=== PATIENT | male | born 1945 | race Hispanic/Latino ===

== ENCOUNTER → 2018-01-15 | Outpatient (CLI) | payer OTHER | END | disposition home or self-care (01) | LOC: SHCH 15:19 | PROVIDERS: ATTEND Internal Medicine Cardiovascular Disease | DX: I10 Essential (primary) hypertension (principal) | CPT/HCPCS: 93306 ==

== ENCOUNTER → 2018-01-22 | Outpatient (CLI) | payer OTHER ==
[~2018-01-22] VITALS: Ht 172.7 cm; Wt 108.9 kg
[~2018-01-22] MED LIST: REGADENOSON 0.4 MG/5 ML PF SYG IVP SCH
== END | disposition home or self-care (01) ==
LOC: SHCH 08:21
PROVIDERS: ATTEND Internal Medicine Cardiovascular Disease
DX: I20.9 Angina pectoris, unspecified (principal)
CPT/HCPCS: 78452; 93017; 96374; A9500 ×2; J2785

== ENCOUNTER → 2019-08-08 | Outpatient (CLI) | payer OTHER | END | disposition home or self-care (01) | LOC: SHCH 15:58 | PROVIDERS: ATTEND Internal Medicine Cardiovascular Disease | DX: I10 Essential (primary) hypertension (principal) | CPT/HCPCS: 93306 ==

== ENCOUNTER 2019-10-02 13:57 | Emergency (ER) | payer OTHER ==
[2019-10-02 14:52] LABS: BASOPHILS % (AUTO) 0.6 % (0.0-5.0); EOSINOPHILS % (AUTO) 0.5 % (0.0-8.0); LYMPHOCYTES % (AUTO) 10.1 % (21.0-51.0); MEAN CORPUSCULAR HEMOGLOBIN 33.1 pg (27.0-33.0); MEAN CORPUSCULAR HGB CONC 33.3 g/dL (32.0-36.0); MEAN CORPUSCULAR VOLUME 99.4 fL (79-99); MONOCYTES % (AUTO) 7.9 % (3.0-13.0); NEUTROPHILS % (AUTO) 80.9 % (40.0-77.0); NUCLEATED RED BLOOD CELLS 0.1 % (0.0-0.19); PLATELET COUNT (AUTO) 165 K/uL (130-400); RED BLOOD CELL COUNT(AUTO) 4.32 MIL/uL (4.50-6.20); RED CELL DISTRIBUTION WIDTH 15.7 % (11.0-15.5); WHITE BLOOD COUNT (AUTO) 9.1 K/uL (4.8-10.8)
[2019-10-02 14:55] LABS: CREATININE 1.1 mg/dL (0.5-1.5); POTASSIUM 4.3 mmol/L (3.5-5.1)
[2019-10-02 14:59] LABS: ALBUMIN 3.2 g/dL (3.5-5.0); BILIRUBIN,TOTAL 0.6 mg/dL (0.2-1.0); TOTAL PROTEIN, SERUM 6.6 g/dL (6.0-8.3)
[2019-10-02] MEDS ORDERED: FUROSEMIDE 10 MG/ML 4ML VIAL ONE (15:18)
[2019-10-02 15:32] LABS: INR 3.31 (0.85-1.15); PROTHROMBIN TIME 32.5 SEC (9.6-11.6)
[2019-10-02 15:33] LABS: B-TYPE NATRIURETIC PEPTIDE 43 pg/mL (0-100)
== END 2019-10-02 16:50 | disposition home or self-care (01) ==
LOC: EDH 13:57
DX: R60.0 Localized edema (principal); M79.89 Other specified soft tissue disorders; I10 Essential (primary) hypertension; M06.9 Rheumatoid arthritis, unspecified; Z88.0 Allergy status to penicillin; Z88.2 Allergy status to sulfonamides; Z88.8 Allergy status to other drugs, medicaments and biological substances
CPT/HCPCS: 36415; 71045; 80053; 82550; 83880; 84484; 85025; 85610; 85730; 93005; 93970; 96374; 99285; J1940

== ENCOUNTER → 2019-12-25 | Outpatient (CLI) | payer OTHER | END | disposition home or self-care (01) | LOC: OIH 11:23 | PROVIDERS: ATTEND Internal Medicine Cardiovascular Disease | DX: Z13.6 Encounter for screening for cardiovascular disorders (principal) | CPT/HCPCS: 75571 ==

== ENCOUNTER → 2020-01-15 | Outpatient (CLI) | payer OTHER | END | disposition home or self-care (01) | LOC: SHCH 13:44 | PROVIDERS: ATTEND Internal Medicine Cardiovascular Disease | DX: R60.9 Edema, unspecified (principal); I87.2 Venous insufficiency (chronic) (peripheral) | CPT/HCPCS: 93970 ==

== ENCOUNTER → 2020-01-17 | Outpatient (CLI) | payer OTHER | END | disposition home or self-care (01) | LOC: SHCH 07:53 | PROVIDERS: ATTEND Internal Medicine Cardiovascular Disease | DX: R06.00 Dyspnea, unspecified (principal); I20.9 Angina pectoris, unspecified | CPT/HCPCS: 78452; 93017; 96374; A9500 ×2; J2785 ==

== ENCOUNTER 2020-07-01 09:43 | Inpatient (IN) | payer OTHER ==
[~2020-07-01] VITALS: Ht 172.7 cm; Wt 112.9 kg
[2020-07-01] MEDS ORDERED: ONDANSETRON HCL 4 MG/2 ML VIAL ONE (10:13)
[2020-07-01] MEDS ORDERED: ACETAMINOPHEN EXTRA STRENGTH 500 MG TABLET ONE (10:13)
[2020-07-01] MEDS ORDERED: SODIUM CHLORIDE 0.9% 1000ML 1,000 ML IV ONE ×2 (10:13→14:11)
[2020-07-01 10:15] LABS: BASOPHILS % (AUTO) 0.5 % (0.0-5.0); EOSINOPHILS % (AUTO) 1.6 % (0.0-8.0); HEMATOCRIT 41.8 % (42-54); LYMPHOCYTES % (AUTO) 12.7 % (21.0-51.0); MEAN CORPUSCULAR HEMOGLOBIN 30.5 pg (27.0-33.0); MEAN CORPUSCULAR HGB CONC 33.3 g/dL (32.0-36.0); MEAN CORPUSCULAR VOLUME 91.9 fL (79-99); MONOCYTES % (AUTO) 10.7 % (3.0-13.0); NEUTROPHILS % (AUTO) 73.2 % (40.0-77.0); PLATELET COUNT (AUTO) 181 K/uL (130-400); RED BLOOD CELL COUNT(AUTO) 4.55 MIL/uL (4.50-6.20); RED CELL DISTRIBUTION WIDTH 16.1 % (11.0-15.5); WHITE BLOOD COUNT (AUTO) 10.3 K/uL (4.8-10.8)
[2020-07-01 10:41] LABS: INR 1.06 (0.85-1.15); PARTIAL THROMBOPLASTIN TIME 31.8 SEC (26.3-35.5); PROTHROMBIN TIME 11.4 SEC (9.6-11.6)
[2020-07-01 10:42] LABS: ALBUMIN 2.9 g/dL (3.5-5.0); BILIRUBIN,TOTAL 1.3 mg/dL (0.2-1.0); CREATININE 1.2 mg/dL (0.5-1.5); POTASSIUM 4.4 mmol/L (3.5-5.1); TOTAL PROTEIN, SERUM 7.1 g/dL (6.0-8.3)
[2020-07-01 11:05] LABS: CREATINE KINASE, TOTAL 82 U/L (21-232); MYOGLOBIN 94 ng/mL (10-92); TROPONIN I < 0.04 ng/mL (0.00-0.06)
[2020-07-01 11:20] LABS: APPEARANCE,URINE Clear (CLEAR); BILIRUBIN,URINE Negative (NEGATIVE); COLOR,URINE Yellow (YELLOW); GLUCOSE, URINE (UA) >=1000 mg/dL (NEGATIVE); KETONES,URINE 40 mg/dL (NEGATIVE); LEUKOCYTE ESTERASE ,URINE Negative (NEGATIVE); NITRATE,URINE Negative (NEGATIVE); OCCULT BLOOD,URINE Negative (NEGATIVE); PROTEIN,URINE Trace mg/dL (NEGATIVE)
[2020-07-01 11:29] LABS: BACTERIA,URINE Rare /HPF (None Seen); RBC,URINE 0-1 /HPF (0-1); SQUAMOUS EPITHELIAL CELL,UR Rare /HPF (0-2); WBC,URINE 0-1 /HPF (0-1)
[2020-07-01] MEDS ORDERED: CEFAZOLIN SODIUM 1 GM VIAL ONE (12:03)
[2020-07-01] MEDS ORDERED: INSULIN HUMULIN R 100 UNIT/ML 3ML ONE (12:27)
[2020-07-01] MEDS: CLINDAMYCIN 600 MG/D5% WATER 50 ML IV SCH ×2 (13:00→20:45)
[2020-07-01] MEDS: SODIUM CHLORIDE 0.9% 1000ML 1,000 ML IV SCH (13:00)
[2020-07-01] MEDS ORDERED: ACETAMINOPHEN 325 MG TAB PO PRN (13:00)
[2020-07-01] MEDS ORDERED: GLUCAGON 1MG KIT 1 MG ML IM PRN (13:00)
[2020-07-01] MEDS ORDERED: DEXTROSE 50%-WATER 50 ML DISP.SYRIN IV PRN (13:00)
[2020-07-01] MEDS ORDERED: ONDANSETRON HCL 4 MG/2 ML VIAL IVP PRN (13:00)
[2020-07-01] MEDS ORDERED: MORPHINE SULFATE 2 MG/ML 1ML SYG IVP PRN (13:15)
[2020-07-01] MEDS ORDERED: CLINDAMYCIN 600 MG/D5% WATER 50 ML IV ONE (14:11)
[2020-07-01] MEDS: INSULIN HUMULIN R 100 UNIT/ML 3ML SQ SCH ×2 (16:30→22:01)
[2020-07-01 17:11] VITALS: BP 146/56
[2020-07-01 19:31] VITALS: BP 118/76
[2020-07-01] MEDS: FAMOTIDINE 20MG TAB 20 MG TAB PO SCH (20:47)
[2020-07-01] MEDS ORDERED: ATOR40TA69 PO (22:14)
[2020-07-01] MEDS ORDERED: METO50TA18 PO (22:14)
[2020-07-01] MEDS ORDERED: LISI40TA4 PO (22:14)
[2020-07-01] MEDS ORDERED: WARF-57 PO (22:14)
[2020-07-01] MEDS ORDERED: WARF2.5T85 PO (22:14)
[2020-07-01] MEDS ORDERED: SPIR100T5 PO (22:19)
[2020-07-01] MEDS ORDERED: FOLI1 PO (22:19)
[2020-07-01] MEDS ORDERED: ISOS30TA6 PO (22:19)
[2020-07-01] MEDS ORDERED: CELE-84 PO (22:25)
[2020-07-01] MEDS ORDERED: OXYC20TA41 PO (22:25)
[2020-07-01] MEDS ORDERED: OXYC5TAB3 PO (22:25)
[2020-07-01] MEDS ORDERED: TAMS-1 PO (22:28)
[2020-07-01] MEDS ORDERED: FENO145T PO (22:28)
[2020-07-01] MEDS ORDERED: FURO40TA5 PO (22:28)
[2020-07-01] MEDS ORDERED: CYAN500T63 PO (22:31)
[2020-07-01] MEDS ORDERED: CHOL1CRY2 MC (22:31)
[2020-07-01] MEDS ORDERED: METF-446 PO (22:31)
[2020-07-01] MEDS ORDERED: NPH,100V11 SQ (22:50)
[2020-07-01] MEDS ORDERED: INSU100C6 SQ (22:50)
--- NOTE | 2020-07-01 23:11 | NUR ---
NOTE CONTACTED ONCALL FOR HOSPITALIST VIA ANSWERING SERVICE. SPOKE WITH KALANI MONTES ENVIRONMENTAL CONFLICT MANAGER, REVIEWED THE HOME MEDICATIONS THAT PATIENT VOICING CONSERN ABOUT NOT RECEIVING. RECEIVED ORDERS TO PARTIALLY RESUME MEDS. INDICATED ON RECONCILIATION LIST.
[2020-07-01 23:58] VITALS: BP 142/71
[2020-07-02] MEDS: OXYCODONE HCL 5 MG TAB PO PRN (00:57)
[2020-07-02] MEDS: INSULIN NPH 100 UNIT/ML 3ML SQ SCH ×3 (01:06→18:06)
[2020-07-02] MEDS: CLINDAMYCIN 600 MG/D5% WATER 50 ML IV SCH ×4 (02:11→21:41)
[2020-07-02 03:55] VITALS: BP 123/74
[2020-07-02 04:35] LABS: BASOPHILS % (AUTO) 0.2 % (0.0-5.0); EOSINOPHILS % (AUTO) 4.4 % (0.0-8.0); LYMPHOCYTES % (AUTO) 12.6 % (21.0-51.0); MEAN CORPUSCULAR HEMOGLOBIN 30.2 pg (27.0-33.0); MEAN CORPUSCULAR HGB CONC 32.4 g/dL (32.0-36.0); MEAN CORPUSCULAR VOLUME 93.2 fL (79-99); MONOCYTES % (AUTO) 12.5 % (3.0-13.0); NEUTROPHILS % (AUTO) 69.1 % (40.0-77.0); PLATELET COUNT (AUTO) 165 K/uL (130-400); RED BLOOD CELL COUNT(AUTO) 3.97 MIL/uL (4.50-6.20); WHITE BLOOD COUNT (AUTO) 8.6 K/uL (4.8-10.8)
[2020-07-02 05:07] LABS: ALBUMIN 2.4 g/dL (3.5-5.0); BILIRUBIN,TOTAL 1.3 mg/dL (0.2-1.0); POTASSIUM 3.9 mmol/L (3.5-5.1); TOTAL PROTEIN, SERUM 6.4 g/dL (6.0-8.3); URIC ACID 5.5 mg/dL (2.6-7.2)
[2020-07-02] MEDS: INSULIN HUMULIN R 100 UNIT/ML 3ML SQ SCH ×4 (06:48→21:53)
[2020-07-02 08:56] VITALS: BP 147/71
[2020-07-02] MEDS ORDERED: CHOLECALCIFEROL 1 GM PO SCH (09:00)
[2020-07-02] MEDS: ENOXAPARIN SODIUM 40 MG/0.4 ML SYRINGE SQ SCH (09:21)
[2020-07-02] MEDS: SPIRONOLACTONE 25 MG TAB PO SCH (13:05)
[2020-07-02] MEDS: CELECOXIB 200 MG CAP PO SCH ×2 (13:05→21:43)
[2020-07-02] MEDS: FOLIC ACID 1 MG TABLET PO SCH (13:05)
[2020-07-02] MEDS: FUROSEMIDE 20 MG TABLET PO SCH (13:05)
[2020-07-02] MEDS: CYANOCOBALAMIN (VITAMIN B-12) 1,000 MCG TABLET PO SCH (13:05)
[2020-07-02] MEDS: METOPROLOL TARTRATE 25 MG TAB PO SCH ×2 (13:05→21:44)
[2020-07-02] MEDS: LISINOPRIL 40 MG TABLET PO SCH (13:06)
[2020-07-02] MEDS: FENOFIBRATE NANOCRYSTALLIZED 145 MG TAB PO SCH (13:06)
[2020-07-02] MEDS: FAMOTIDINE 20MG TAB 20 MG TAB PO SCH (13:06)
[2020-07-02] MEDS: ISOSORBIDE MONO 30MG TAB SR PO SCH (13:06)
[2020-07-02] MEDS: INSULIN LISPRO 100 UNIT/ML 3ML SQ SCH ×3 (13:08→18:04)
[2020-07-02 13:34] VITALS: BP 137/71
[2020-07-02] MEDS: SODIUM CHLORIDE 0.9% 1000ML 1,000 ML IV SCH (14:41)
[2020-07-02] MEDS: FUROSEMIDE 10 MG/ML 2ML VIAL IV SCH ×2 (15:30→18:06)
[2020-07-02 15:51] LABS: HEMOGLOBIN A1C 9.4 % (4.0-6.0)
[2020-07-02 16:38] VITALS: BP 92/51
[2020-07-02 16:42] VITALS: BP 92/51
[2020-07-02] MEDS ORDERED: INSULIN LISPRO 100 UNIT/ML 3ML SQ SCH (17:00)
--- NOTE | 2020-07-02 17:00 | NUR ---
MET W PATIENT AT BEDSIDE FOR ASSESSEMENT Per patient he lives with his Dasha and is semi indp - he states has has electric chair, wc, wkr, sc ; denies provider service, states home safe/accessible. Pain and redness to leg, states normally can get in and out of care to drive but lately cannot do anything for himself because he in pain. States his plan is to go home . Call to spouse to confirm, no answer CM TO FOLLOW Addendum: 07/03/20 at 1730 by LOBITO GRESHAM RN CM Amended: Links added.
[2020-07-02 20:24] VITALS: BP 109/52
[2020-07-02] MEDS: OXYCODONE HCL 20 MG TAB.SR.12H PO SCH (21:00)
[2020-07-02] MEDS: ATORVASTATIN CALCIUM 20 MG TABLET PO SCH (21:43)
[2020-07-02] MEDS: TAMSULOSIN HCL 0.4 MG CAP.ER.24H PO SCH (21:43)
[2020-07-03] VITALS (9 sets, daily range): BP systolic 81–126; BP diastolic 41–74
[2020-07-03] MEDS: CLINDAMYCIN 600 MG/D5% WATER 50 ML IV SCH ×4 (03:51→20:35)
[2020-07-03 04:36] LABS: BASOPHILS % (AUTO) 0.3 % (0.0-5.0); EOSINOPHILS % (AUTO) 6.2 % (0.0-8.0); HEMATOCRIT 34.8 % (42-54); LYMPHOCYTES % (AUTO) 13.2 % (21.0-51.0); MEAN CORPUSCULAR HEMOGLOBIN 30.6 pg (27.0-33.0); MEAN CORPUSCULAR HGB CONC 32.8 g/dL (32.0-36.0); MEAN CORPUSCULAR VOLUME 93.5 fL (79-99); MONOCYTES % (AUTO) 11.6 % (3.0-13.0); NEUTROPHILS % (AUTO) 67.6 % (40.0-77.0); PLATELET COUNT (AUTO) 150 K/uL (130-400); RED BLOOD CELL COUNT(AUTO) 3.72 MIL/uL (4.50-6.20); RED CELL DISTRIBUTION WIDTH 16.1 % (11.0-15.5); WHITE BLOOD COUNT (AUTO) 7.1 K/uL (4.8-10.8)
[2020-07-03 04:50] LABS: INR 1.09 (0.85-1.15); PROTHROMBIN TIME 11.7 SEC (9.6-11.6)
[2020-07-03 05:11] LABS: ALBUMIN 2.2 g/dL (3.5-5.0); BILIRUBIN,TOTAL 1.3 mg/dL (0.2-1.0); CREATININE 1.1 mg/dL (0.5-1.5); POTASSIUM 3.9 mmol/L (3.5-5.1); TOTAL PROTEIN, SERUM 6.1 g/dL (6.0-8.3)
[2020-07-03] MEDS: INSULIN HUMULIN R 100 UNIT/ML 3ML SQ SCH (06:30)
[2020-07-03] MEDS ORDERED: INSULIN NPH 100 UNIT/ML 3ML SQ SCH (07:00)
[2020-07-03] MEDS: INSULIN LISPRO 100 UNIT/ML 3ML SQ SCH ×7 (07:30→20:49)
[2020-07-03] MEDS: OXYCODONE HCL 20 MG TAB.SR.12H PO SCH ×2 (09:00→20:35)
[2020-07-03] MEDS: ENOXAPARIN SODIUM 40 MG/0.4 ML SYRINGE SQ SCH (10:02)
[2020-07-03] MEDS: METOPROLOL TARTRATE 25 MG TAB PO SCH ×2 (10:02→20:34)
[2020-07-03] MEDS: FOLIC ACID 1 MG TABLET PO SCH (10:02)
[2020-07-03] MEDS: CELECOXIB 200 MG CAP PO SCH ×2 (10:02→20:34)
[2020-07-03] MEDS: FENOFIBRATE NANOCRYSTALLIZED 145 MG TAB PO SCH (10:02)
[2020-07-03] MEDS: CYANOCOBALAMIN (VITAMIN B-12) 1,000 MCG TABLET PO SCH (10:02)
[2020-07-03] MEDS: LISINOPRIL 40 MG TABLET PO SCH (10:02)
[2020-07-03] MEDS: ISOSORBIDE MONO 30MG TAB SR PO SCH (10:03)
[2020-07-03] MEDS: SPIRONOLACTONE 25 MG TAB PO SCH (10:03)
[2020-07-03] MEDS: FUROSEMIDE 20 MG TABLET PO SCH (10:06)
[2020-07-03] MEDS: OXYCODONE HCL 5 MG TAB PO PRN (12:50)
[2020-07-03] MEDS: INSULIN NPH 100 UNIT/ML 3ML SQ SCH (16:39)
[2020-07-03] MEDS ORDERED: SODIUM CHLORIDE 0.9% 1000ML 1,000 ML IV SCH (17:00)
--- NOTE | 2020-07-03 17:01 | NUR ---
ATTEMPTED TO CONTACT SPOUSE FOR DC PLAN CONFIRMATION X2 ATTEMPTS TODAY. STAFF ADVISED CM THIS AM THAT PT IS MAX ASSIST AND INTERMITTENTLY CONFUSED, AND TO PLEASE CONFIRM HIS HOME FUNCTION WITH SPOUSE. 2 CALLS, LEFT TEXT, NO RESPONSE, CM TO FOLLOW
--- NOTE | 2020-07-03 17:23 | NUR ---
BP RECHECK BP RECHECK AFTER NS 500ML IV BOLUS GIVEN WAS 81/44 HR 93. PATIENT ASYMPTOMATIC. CALLED Roland RUIZ NP TP REPORT FINDINGS AND WAS INSTRUCTED TO GIVE BOLUS MORE TIME TO TAKE EFFECT AND CONTINUE TO MONITOR BLOOD PRESSURE.
--- NOTE | 2020-07-03 17:51 | NUR ---
BP RECHECK MANUAL BP RECHECK 105/64
[2020-07-03] MEDS: FAMOTIDINE 20MG TAB 20 MG TAB PO SCH (20:33)
[2020-07-03] MEDS: TAMSULOSIN HCL 0.4 MG CAP.ER.24H PO SCH (20:34)
[2020-07-03] MEDS: ATORVASTATIN CALCIUM 20 MG TABLET PO SCH (20:34)
[2020-07-04] MEDS: CLINDAMYCIN 600 MG/D5% WATER 50 ML IV SCH ×4 (02:25→21:07)
[2020-07-04 03:59] VITALS: BP 88/53
[2020-07-04 05:25] LABS: HEMATOCRIT 35.1 % (42-54); MEAN CORPUSCULAR HEMOGLOBIN 29.9 pg (27.0-33.0); MEAN CORPUSCULAR HGB CONC 31.9 g/dL (32.0-36.0); MEAN CORPUSCULAR VOLUME 93.6 fL (79-99); RED BLOOD CELL COUNT(AUTO) 3.75 MIL/uL (4.50-6.20); RED CELL DISTRIBUTION WIDTH 16.1 % (11.0-15.5); WHITE BLOOD COUNT (AUTO) 6.3 K/uL (4.8-10.8)
[2020-07-04 05:49] LABS: ALBUMIN 2.2 g/dL (3.5-5.0); BILIRUBIN,TOTAL 0.9 mg/dL (0.2-1.0); CREATININE 1.4 mg/dL (0.5-1.5); POTASSIUM 3.5 mmol/L (3.5-5.1); TOTAL PROTEIN, SERUM 6.2 g/dL (6.0-8.3)
[2020-07-04] MEDS: INSULIN NPH 100 UNIT/ML 3ML SQ SCH (07:10)
[2020-07-04] MEDS: INSULIN LISPRO 100 UNIT/ML 3ML SQ SCH ×7 (07:12→21:04)
[2020-07-04 08:00] VITALS: BP 120/59
[2020-07-04] MEDS: OXYCODONE HCL 20 MG TAB.SR.12H PO SCH ×2 (09:00→21:00)
[2020-07-04] MEDS: CYANOCOBALAMIN (VITAMIN B-12) 1,000 MCG TABLET PO SCH (09:09)
[2020-07-04] MEDS: CELECOXIB 200 MG CAP PO SCH ×2 (09:09→21:02)
[2020-07-04] MEDS: FOLIC ACID 1 MG TABLET PO SCH (09:09)
[2020-07-04] MEDS: FENOFIBRATE NANOCRYSTALLIZED 145 MG TAB PO SCH (09:10)
[2020-07-04] MEDS: ENOXAPARIN SODIUM 40 MG/0.4 ML SYRINGE SQ SCH (09:19)
[2020-07-04 11:00] VITALS: BP 103/61
[2020-07-04] MEDS: METOPROLOL TARTRATE 25 MG TAB PO SCH ×2 (12:01→21:02)
[2020-07-04] MEDS: FUROSEMIDE 20 MG TABLET PO SCH (12:01)
[2020-07-04] MEDS: ISOSORBIDE MONO 30MG TAB SR PO SCH (12:03)
[2020-07-04 16:00] VITALS: BP 96/57
[2020-07-04] MEDS ORDERED: WARFARIN SODIUM 2.5 MG TAB PO SCH (16:00)
[2020-07-04] MEDS ORDERED: INSULIN NPH 100 UNIT/ML 3ML SQ SCH (17:00)
[2020-07-04 20:00] VITALS: BP 116/54
[2020-07-04] MEDS: TAMSULOSIN HCL 0.4 MG CAP.ER.24H PO SCH (21:02)
[2020-07-04] MEDS: ATORVASTATIN CALCIUM 20 MG TABLET PO SCH (21:02)
[2020-07-04] MEDS: FAMOTIDINE 20MG TAB 20 MG TAB PO SCH (21:02)
[2020-07-04] MEDS: SODIUM CHLORIDE 0.9% 1000ML 1,000 ML IV SCH (21:08)
[2020-07-04 23:32] VITALS: BP 102/58
[2020-07-05] MEDS: CLINDAMYCIN 600 MG/D5% WATER 50 ML IV SCH ×3 (03:13→14:19)
[2020-07-05 04:00] VITALS: BP 118/74
[2020-07-05] MEDS: INSULIN NPH 100 UNIT/ML 3ML SQ SCH (06:25)
[2020-07-05] MEDS: INSULIN LISPRO 100 UNIT/ML 3ML SQ SCH ×6 (06:25→17:04)
[2020-07-05 08:00] VITALS: BP 110/59
[2020-07-05] MEDS ORDERED: LISINOPRIL 40 MG TABLET PO SCH (09:00)
[2020-07-05] MEDS: OXYCODONE HCL 20 MG TAB.SR.12H PO SCH (09:00)
[2020-07-05] MEDS ORDERED: SPIRONOLACTONE 25 MG TAB PO SCH (09:00)
[2020-07-05] MEDS: METOPROLOL TARTRATE 25 MG TAB PO SCH (09:02)
[2020-07-05] MEDS: CELECOXIB 200 MG CAP PO SCH (09:02)
[2020-07-05] MEDS: CYANOCOBALAMIN (VITAMIN B-12) 1,000 MCG TABLET PO SCH (09:02)
[2020-07-05] MEDS: FUROSEMIDE 20 MG TABLET PO SCH (09:02)
[2020-07-05] MEDS: FOLIC ACID 1 MG TABLET PO SCH (09:02)
[2020-07-05] MEDS: ISOSORBIDE MONO 30MG TAB SR PO SCH (09:02)
[2020-07-05] MEDS: FENOFIBRATE NANOCRYSTALLIZED 145 MG TAB PO SCH (09:02)
[2020-07-05] MEDS: SODIUM CHLORIDE 0.9% 1000ML 1,000 ML IV SCH (10:20)
[2020-07-05 11:00] VITALS: BP 120/58
--- NOTE | 2020-07-05 15:11 | NUR ---
DCP UPDATE: Spoke w pt this afternoon to discuss Md/order recommendation for rehab placement. Pt mentions that he wants to go home. Asked pt if it was ok to contact spouse to confirm dcp. Pt gave verbal authorization. Called Mrs Dunn @ [phone]. Informed Mrs Dunn that Md was recommending rehab @ [facility]. Informed Mrs Dunn that per PT notes pt was requiring min assist x2 for bed mobility/transfers and ambulation. Mrs Dunn states that she prefers to take pt home. She mentions that she is able to assist him at home and their 40yr old son lives w him as well. Per Mrs Dunn their son also assists as pts provider. Pt has at home an electric wc/walker if needed. Per Mrs Dunn if needed she will ask [place] to coordinate services for rehab. HERBER Beavers updated regarding pt/family dcp.
[2020-07-05] MEDS ORDERED: INSU100C6 SQ (15:56)
[2020-07-05 16:00] VITALS: BP 135/71
[2020-07-05] MEDS ORDERED: WARFARIN SODIUM 5 MG TAB PO SCH (16:00)
--- NOTE | 2020-07-05 16:05 | NUR ---
DISCHARGE PLANNING SPOKE TO LOAD OUT PERSON ANIBAL REGARDING DISCHARGE PLAN TO HOME AND THAT I WAS CONCERNED ABOUT SAFETY OF TRANSFERRING PATIENT HOME AND IF FAMILY VEHICLE WAS EQUIPPED AND SAFE TO PICKUP PATIENT. DISCUSSED POSSIBLE EMS FOR SAFETY REASONS.
--- NOTE | 2020-07-05 16:30 | NUR ---
TRANSFER ABILITY PATIENT REQUIRES 1-2 PEOPLE ASSIST WHEN AMBULATING WITH WALKER OR TRANSFERRING FROM BED TO CHAIR. EXHIBITS UNSTEADY GAIT WHEN AMBULATING WITH A WALKER. PATIENT UNABLE TO LIFT BILATERAL LEGS OFF OF BED WHEN ASSESSING FOR STRENGTH, REPORTS PAIN TO LIGHT TOUCH OF BOTH LOWER LEGS.
[2020-07-05] MEDS ORDERED: INSULIN NPH 100 UNIT/ML 3ML SQ SCH (17:00)
--- NOTE | 2020-07-05 17:25 | NUR ---
Discharge Discharge teaching provided regarding rx, home medications, home care, pending F/U appts with PCP and Dr. Catalan to be scheduled. Patient verbalized understanding of discharge teaching. Patient agreed with EMS transport home, patient told me he spoke to his and she is aware EMS ambulance will transport patient home and that his and sons would be home expecting patient to arrive via EMS ambulance. Tele pack removed. Removed 20G from left wrist, catheter tip intact. Patient reports he is happy and relieved to be going home today.
--- NOTE | 2020-07-05 17:33 | NUR ---
[facility] Called [facility] [phone] that patient in room 302 ready to be picked up and transported home.
[2020-07-06] MEDS ORDERED: INSULIN NPH 100 UNIT/ML 3ML SQ SCH (07:00)
[2020-07-07] MEDS ORDERED: WARFARIN SODIUM 2.5 MG TAB PO SCH (16:00)
== END 2020-07-05 18:50 | disposition home or self-care (01) | DRG 602 ==
LOC: EDH 09:43 → EDHIP 12:38 → 3AH 16:48
PROVIDERS: ADMIT Hospitalist; ATTEND Hospitalist
DX: L03.115 Cellulitis of right lower limb (principal); A41.9 Sepsis, unspecified organism; L03.116 Cellulitis of left lower limb; E11.65 Type 2 diabetes mellitus with hyperglycemia; E66.01 Morbid (severe) obesity due to excess calories; E78.5 Hyperlipidemia, unspecified; E88.81 Metabolic syndrome and other insulin resistance; I10 Essential (primary) hypertension; E11.42 Type 2 diabetes mellitus with diabetic polyneuropathy; I25.10 Atherosclerotic heart disease of native coronary artery without angina pectoris; M06.9 Rheumatoid arthritis, unspecified; N40.0 Benign prostatic hyperplasia without lower urinary tract symptoms; Z79.4 Long term (current) use of insulin; Z86.73 Personal history of transient ischemic attack (TIA), and cerebral infarction without residual deficits; Z83.3 Family history of diabetes mellitus; Z68.37 Body mass index [BMI] 37.0-37.9, adult; Z88.0 Allergy status to penicillin; Z88.2 Allergy status to sulfonamides; Z88.8 Allergy status to other drugs, medicaments and biological substances
CPT/HCPCS: 36415; 70450; 71045; 80053; 81001; 82140; 82550; 82948; 83036; 83605; 83874; 84145; 84484; 84540; 84550; 85025; 85027; 85610; 85730; 86900; 86901; 87040; 87088; 87426; 93005; 93922; 93971; 97039; G0378; J0690; J1650; J1815; J1940; J2405; J3490; J7030; U0003

== ENCOUNTER → 2023-04-21 | Outpatient (CLI) | payer OTHER ==
[~2023-04-21] MED LIST changes: +ATOR40TA69 PO; +CELE-84 PO; +CHOL1CRY2 MC; +CYAN500T9 PO; +FENO145T PO; +FOLI1 PO; +FURO40TA5 PO; +INSU100C6 SQ; +ISOS30TA92 PO; +LISI40TA9 PO; +METF-446 PO; +METO50TA18 PO; +NPH,100V11 SQ; +OXYC20TA41 PO; +OXYC5TAB3 PO; -REGADENOSON 0.4 MG/5 ML PF SYG IVP SCH; +SPIR100T5 PO; +TAMS-1 PO; +WARF-57 PO; +WARF2.5T85 PO
[2023-04-21 15:18] LABS: BASOPHILS % (AUTO) 0.5 % (0.0-5.0); EOSINOPHILS % (AUTO) 5.5 % (0.0-8.0); HEMATOCRIT 47.4 % (42-54); LYMPHOCYTES % (AUTO) 24.3 % (21.0-51.0); MEAN CORPUSCULAR HEMOGLOBIN 29.4 pg (27.0-33.0); MEAN CORPUSCULAR HGB CONC 31.4 g/dL (32.0-36.0); MEAN CORPUSCULAR VOLUME 93.5 fL (79-99); MONOCYTES % (AUTO) 11.7 % (3.0-13.0); NEUTROPHILS % (AUTO) 56.9 % (40.0-77.0); PLATELET COUNT (AUTO) 307 K/uL (130-400); RED BLOOD CELL COUNT(AUTO) 5.07 MIL/uL (4.50-6.20); RED CELL DISTRIBUTION WIDTH 15.8 % (11.0-15.5); WHITE BLOOD COUNT (AUTO) 7.3 K/uL (4.8-10.8)
[2023-04-21 16:14] LABS: ALBUMIN 3.3 g/dL (3.5-5.0); POTASSIUM 4.1 mmol/L (3.5-5.1); T4 (THYROXINE) 6.2 ug/dL (4.7-13.3); THYROID STIMULATING HORMONE 3.95 uIU/mL (0.36-3.74); TOTAL PROTEIN, SERUM 7.6 g/dL (6.0-8.3)
== END | disposition home or self-care (01) ==
LOC: LAB 12:48
PROVIDERS: ATTEND Physician Assistant
DX: I10 Essential (primary) hypertension (principal); E78.5 Hyperlipidemia, unspecified; I48.0 Paroxysmal atrial fibrillation
CPT/HCPCS: 36415; 80053; 83735; 84436; 84443; 85025

== ENCOUNTER → 2024-04-25 | Outpatient (CLI) | payer OTHER ==
[~2024-04-25] MED LIST changes: +CELE-125 PO; -CELE-84 PO
== END | disposition home or self-care (01) ==
LOC: RAH 14:15
PROVIDERS: ATTEND Internal Medicine Cardiovascular Disease
DX: I25.10 Atherosclerotic heart disease of native coronary artery without angina pectoris (principal); R06.02 Shortness of breath; M47.815 Spondylosis without myelopathy or radiculopathy, thoracolumbar region
CPT/HCPCS: 71250